=== PATIENT | male | born 1985 | race Caucasian/White ===

== ENCOUNTER 2018-10-20 16:08 | Inpatient (IN) | payer MEDICAID ==
[~2018-10-20] VITALS: Ht 175.3 cm; Wt 114.2 kg
--- NOTE | 2018-10-20 16:15 | NUR ---
BEHAVIORAL HEALTH NURSE AT
--- NOTE | 2018-10-20 16:32 | NUR ---
D/T THE SUICIDE ASSESSMENT THE PATIENT RATES A HIGH SCORE, IT IS RECOMMENDED BY DR. EVERETT THAT THE PATIENT BE PLACED ON A SUICIDE WATCH 1:1. HE ALSO ADMIT HE FEELS HOMICIDAL.
[2018-10-20 17:03] LABS: BASOPHILS 0.3 % (0-2); EOSINOPHILS 4.1 % (0-7); HEMATOCRIT 36.9 % (42.0-54.0); HEMOGLOBIN 12.1 g/dL (13.5-17.5); IMMATURE GRANULOCYTES 0.2 % (0-5); LYMPHOCYTES 44.4 % (15-50); MCH 28.7 pg (26.0-34.0); MCHC 32.8 g/dL (31.0-37.0); MCV 87.6 fL (80.0-100.0); MEAN PLATELET VOLUME 8.9 fL (7.4-10.4); MONOCYTES 9.9 % (2-11); NEUTROPHILS 41.1 % (40-80); PLATELET COUNT 215 10x3/uL (130-400); RBC 4.21 10x6/uL (4.20-6.10); RDW 16.1 % (11.5-14.5); WBC 6.1 10x3/uL (4.8-10.8)
[2018-10-20 17:07] LABS: INR 1.45 (0.85-1.17)
[2018-10-20 17:12] VITALS: BP 123/67
[2018-10-20 17:15] LABS: ALBUMIN 2.9 g/dL (3.4-5.0); ALKALINE PHOSPHATASE 96 U/L (46-116); ALT (SGPT) 53 U/L (10-68); BILIRUBIN - TOTAL 0.45 mg/dL (0.2-1.3); CALC OSMOLALITY 278 mosm/kg (275-300); CARBON DIOXIDE 27.2 mmol/L (21.0-32.0); CHLORIDE - SERUM 103 mmol/L (98-107); CREATININE - SERUM 0.9 mg/dL (0.6-1.3); GLUCOSE 113 mg/dL (74-106); POTASSIUM - SERUM 3.5 mmol/L (3.5-5.1); PROTEIN - SERUM 6.7 g/dL (6.4-8.2); SODIUM 139 mmol/L (136-145); UREA NITROGEN 13 mg/dL (7-18); eGFR NON AFRICAN AMERICAN > 90 mL/min (90-120)
[2018-10-20 18:14] VITALS: BP 117/76
--- NOTE | 2018-10-20 21:04 | NUR ---
PT ARRIVED TO FLOOR VIA OR BED, AT BEDSIDE, PT AAOx4, BEDSIDE COMMODE IN ROOM, PSYCHIATRIC NURSE AT BEDSIDE, DARRION, KEIRA IVF @O
[2018-10-20] MEDS ORDERED: TRAZODONE HCL150 MG PO (21:35)
[2018-10-20] MEDS ORDERED: LEXAPRO10 MG PO (21:37)
[2018-10-20] MEDS ORDERED: SEROQUEL100 MG PO (21:38)
[2018-10-20] MEDS ORDERED: SEROQUEL300 MG (21:39)
[2018-10-20 22:38] VITALS: BP 122/51; BMI 38.5
[2018-10-20 23:00] VITALS: BP 115/77
[2018-10-21] VITALS (24 sets, daily range): BP systolic 94–137; BP diastolic 57–92
--- NOTE | 2018-10-21 01:00 | NUR ---
PT RESTING WITH EYES CLOSED, WAKES WHEN NURSE ENTERS ROOM, DENIES PAIN OR NEEDS AT THIS TIME, MEDS INFUSING PER MAR/ORDERS, VSS, 1:1 SITTER IN ROOM WITH PT
--- NOTE | 2018-10-21 03:00 | NUR ---
REASSESSMENT COMPLETE PER FLOW SHEET, NO ACUTE CHANGES OR DISTRESS NOTED, PT CALM AND COOPERATIVE, X2 VOIDS NOTED, PT REPOSITIONES FREQUENTLY IN BED, VSS, 1:1 SITTER AT BEDSIDE, WILL CONTINUE TO ASSESS
[2018-10-21 03:55] LABS: BASOPHILS 0.3 % (0-2); EOSINOPHILS 4.1 % (0-7); HEMATOCRIT 34.4 % (42.0-54.0); HEMOGLOBIN 11.6 g/dL (13.5-17.5); IMMATURE GRANULOCYTES 0.2 % (0-5); LYMPHOCYTES 34.9 % (15-50); MCH 29.4 pg (26.0-34.0); MCHC 33.7 g/dL (31.0-37.0); MCV 87.1 fL (80.0-100.0); MONOCYTES 11.4 % (2-11); NEUTROPHILS 49.1 % (40-80); PLATELET COUNT 207 10x3/uL (130-400); RBC 3.95 10x6/uL (4.20-6.10); RDW 15.9 % (11.5-14.5); WBC 5.9 10x3/uL (4.8-10.8)
[2018-10-21 04:10] LABS: ALBUMIN 2.6 g/dL (3.4-5.0); ALKALINE PHOSPHATASE 81 U/L (46-116); ALT (SGPT) 52 U/L (10-68); BILIRUBIN - TOTAL 0.48 mg/dL (0.2-1.3); CALC OSMOLALITY 277 mosm/kg (275-300); CARBON DIOXIDE 27.8 mmol/L (21.0-32.0); CHLORIDE - SERUM 106 mmol/L (98-107); CREATININE - SERUM 0.9 mg/dL (0.6-1.3); GLUCOSE 95 mg/dL (74-106); MAGNESIUM - SERUM 1.7 mg/dL (1.8-2.4); POTASSIUM - SERUM 3.6 mmol/L (3.5-5.1); PROTEIN - SERUM 6.2 g/dL (6.4-8.2); SODIUM 140 mmol/L (136-145); UREA NITROGEN 11 mg/dL (7-18); eGFR NON AFRICAN AMERICAN > 90 mL/min (90-120)
--- NOTE | 2018-10-21 07:00 | NUR ---
REC'D REPORT AND RESUMED CARE, MEETA, VSVishnu, DENIES PAIN, ASSESSMENT COMPLTED PER FLOWSHEET, CALL LIGHT IN REACH, SELF REPOSITIONS, PAPER SCRUBS IN USE, SITTER AT BEDSIDE, STATES HE STILL WANTS TO HARM HIMSELF BUT HE DOES MOT HAV A PLAN,
--- NOTE | 2018-10-21 07:30 | NUR ---
CALLED TO ROOM, [place] [facility] [place] NO EVIDENCE OF WIRE IN POOP
--- NOTE | 2018-10-21 08:00 | NUR ---
CALLED TO ROOM, BM TO [facility], STRAINED AND EMPTIED, NO EVIDENCE OF WIRE
--- NOTE | 2018-10-21 08:02 | NUR ---
BM THOROUGHLY INSPECTED WITH NO FOREIGN OBJECTS FOUND, BM SEMISOLID WITH FOOD PARTICLES, TAPIA COLOR, ONCOMING RN AWARE OF THE NEED TO INSPECT BM
--- NOTE | 2018-10-21 09:30 | NUR ---
CALLED TO ROOM, BM TO [facility], STRAINED AND EMPTIED, NO EVIDENCE OF WIRE
--- NOTE | 2018-10-21 10:02 | NUR ---
CALLED TO ROOM, BM TO [facility], STRAINED AND EMPTIED, NO EVIDENCE OF WIRE
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
[2018-10-21 13:57] LABS: CALC OSMOLALITY 278 mosm/kg (275-300); CARBON DIOXIDE 30.3 mmol/L (21.0-32.0); CHLORIDE - SERUM 106 mmol/L (98-107); CREATININE - SERUM 0.8 mg/dL (0.6-1.3); GLUCOSE 133 mg/dL (74-106); POTASSIUM - SERUM 3.6 mmol/L (3.5-5.1); SODIUM 140 mmol/L (136-145); eGFR NON AFRICAN AMERICAN > 90 mL/min (90-120)
[2018-10-21 14:00] LABS: UREA NITROGEN 7 mg/dL (7-18)
--- NOTE | 2018-10-21 14:25 | NUR ---
CALLED TO ROOM C/O PAIN 01/04, DILAUDID 0.5 MG IVP GIVEN PER ORDER
--- NOTE | 2018-10-21 16:00 | NUR ---
I AND O'S COMPLETED, SITTER AT BEDSIDE, NO NEEDS AT THIS TIME
--- NOTE | 2018-10-21 18:00 | NUR ---
EMPTIED 300 CC URINE/ DIARRHEA POOP TO [place], NO EVIDENCE OF WIRE SEEN
--- NOTE | 2018-10-21 19:20 | NUR ---
LYING QUIETLY IN BED, DRINKING A GLASS OF GOLYTELY FROM SECOND JUG. PATIENT SAW DR. RIOS AT BEDSIDE. INFORMED OF PATIENTS SUICIDE STATUS.
--- NOTE | 2018-10-21 19:24 | NUR ---
AT BEDSIDE, UPDATE GIVEN, PT AAOx4, VSS, REPORT RECEIVED, INITIAL ASSESSMENT COMPLETED PER FLOW SHEET, 1:! PSYCH SITTER IN ROOM WITH PT, x1 CUP H2O GIVEN PER REQUEST, NO FURTHER AT THIS TIME, WILL CONTINUE TO MONITOR
--- NOTE | 2018-10-21 20:12 | NUR ---
PATIENT SAYS HE THINKS ABOUT SI. ALL THE TIME. HAS A PLAN THAT HE WOULD JUMP IN FRONT OF A CAR. HE SAYS HE IS TIRED OF BEING ALONE. HE HAS A SISTER AND BROTHER LIVING IN OTHER CITIES IN [place]. SITTER IS MONITORING FOR PER DR. RIOS, WHO IS RECONSIGNMENT CLERK FOR DR. EVERETT.
--- NOTE | 2018-10-21 21:00 | NUR ---
PT REQUESTING PAIN MEDS R/T PAIN IN LOWER ABDOMEN IN BOTH QUADRANTS, PT STATES THE PAIN FEELS LIKE CRAMPING ACHING PAIN, PT GETS AGGITATED STATING "I'VE BEEN ASKING FOR SOMETHING FOR PAIN SINCE 7:00PM" MED GIVEN PER MAR/ORDERS, VSS, WILL CONTINUE TO ASSESS
--- NOTE | 2018-10-21 23:00 | NUR ---
REASSESSMENT COMPLETE SEE FLOW SHEET, NO ACUTE CHANGE, VSS, PT SLEEPING IN BED WITH NO S/S OF ACUTE DISTRESS, 1:1 SITTER AT BEDSIDE
[2018-10-22] VITALS (24 sets, daily range): BP systolic 101–144; BP diastolic 63–97; BMI 40.2
--- NOTE | 2018-10-22 03:00 | NUR ---
REASSESSMENT COMPLETE PER FLOW SHEET, NO ACUTE CHANGE NOTED FROM PRIOR ASSESSMENT, PT SLEEPING IN BED, EASILY WAKEN, VSS, 1:1 SITTER AT BEDSIDE, PT DENIES PAIN OR NEEDS AT THIS TIME, WILL CONTINUE TO ASSESS
[2018-10-22 04:40] LABS: BASOPHILS 0.6 % (0-2); EOSINOPHILS 4.8 % (0-7); HEMATOCRIT 34.4 % (42.0-54.0); HEMOGLOBIN 11.8 g/dL (13.5-17.5); IMMATURE GRANULOCYTES 0.2 % (0-5); LYMPHOCYTES 36.5 % (15-50); MCH 29.6 pg (26.0-34.0); MCHC 34.3 g/dL (31.0-37.0); MCV 86.2 fL (80.0-100.0); MEAN PLATELET VOLUME 9.1 fL (7.4-10.4); MONOCYTES 8.6 % (2-11); NEUTROPHILS 49.3 % (40-80); PLATELET COUNT 231 10x3/uL (130-400); RBC 3.99 10x6/uL (4.20-6.10); RDW 15.5 % (11.5-14.5); WBC 5.2 10x3/uL (4.8-10.8)
[2018-10-22 05:04] LABS: ALBUMIN 2.5 g/dL (3.4-5.0); ALKALINE PHOSPHATASE 74 U/L (46-116); ALT (SGPT) 58 U/L (10-68); BILIRUBIN - TOTAL 0.36 mg/dL (0.2-1.3); CALCIUM 8.2 mg/dL (8.5-10.1); CHLORIDE - SERUM 110 mmol/L (98-107); CREATININE - SERUM 0.7 mg/dL (0.6-1.3); MAGNESIUM - SERUM 1.6 mg/dL (1.8-2.4); POTASSIUM - SERUM 3.5 mmol/L (3.5-5.1); SODIUM 144 mmol/L (136-145); eGFR NON AFRICAN AMERICAN > 90 mL/min (90-120)
[2018-10-22 05:16] LABS: CALC OSMOLALITY 282 mosm/kg (275-300); GLUCOSE 83 mg/dL (74-106); UREA NITROGEN 4 mg/dL (7-18)
--- NOTE | 2018-10-22 07:00 | NUR ---
REC'D REPORT AND RESUMED CARE, SLEEPING WITH SITTER AT BEDSIDE, AROUSABLE TO VERBAL STIMULI, VSS, DENIES PAIN AT THIS TIME, DISCUSSED IF HE FELT LIKE STILL HARMING HIMSELF, STATES HE DOES BUT DOES NO HAVE A PLAN AT THIS TIME
--- NOTE | 2018-10-22 09:45 | NUR ---
MORNING MED GIVEN PER MAR FLOWSHEET, TOLERATED WITHOUT DIFFICULTY
--- NOTE | 2018-10-22 11:51 | NUR ---
SPOKE WITH EVELINA IN SCHEDULING, COLONOSCOPY WITH TIVA SCHEDULED
--- NOTE | 2018-10-22 13:50 | NUR ---
CONSENTS SIGNED FOR PENDING COLONOSCOPY WITH POSIBLE FOREIGN BODY REMOVAL
--- NOTE | 2018-10-22 15:00 | NUR ---
SLEEPING WITH NO SIGN OF DISTRESS, VSS, SITTER AT BEDSIDE, NO NEEDS AT THIS TIME, NO ACUTE CHAGE FROM PREVIOUS ASSESSMENT
--- NOTE | 2018-10-22 15:35 | NUR ---
PATIENT ADMITS TO SI THOUGHTS, BUT NO PLAN AT THIS TIME. SITTER 1:1 AT BEDSIDE. ASSESSMENT REPORTED TO DR. RIOS, WHO IS COVERING FOR DR. EVERETT.
--- NOTE | 2018-10-22 15:41 | NUR ---
FELICIANO SCREENER AT BEDSIDE, PATIENT COPPERATIVE
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
--- NOTE | 2018-10-22 18:56 | MORECARE ---
CASE MANAGEMENT DISCHARGE SUMMARY PATIENT: VISHAL NICOLE UNIT: [id number] ADM DATE: 10/20/18 AGE: 32 : 89 SEX: M ROOM/BED: D.2307 AUTHOR: JOSE LUIS SANTANA PHYSICIAN: REFERRING PHYSICIAN: SALO JAMES MD DATE OF SERVICE: 10/22/18 Discharge Plan Patient Name: VISHAL NICOLE [facility] [facility] 1985 Planned Disposition: Anticipated Discharge Date: Discharge Date: Expected LOS: Initial Reviewer: [email or web address] Initial Review Date: 10/20/2018 Generated: 10/22/18 7:56 pm Patient Name: VISHAL NICOLE Page [phone] at 1856 All edits/amendments must be made on the electronic document DICTATION DATE: 10/22/181855 HOT REPAIRMAN: YORDAN 10/22/181855 RPT#: [id number] DC DATE: STATUS: ADM IN [facility] [address] [place] [address] END OF REPORT
--- NOTE | 2018-10-22 19:59 | NUR ---
PT RECEIVED WITH EYES CLOSED AND CHEST RISING. EASILY AROUSED TO VERBAL STIMULI. NO CONCERNS MADE KNOWN. ASSESSMENT COMPLETED, SEE FLOW SHEET. SITTER IN ROOM. WILL CONTINUE TO OBSERVE.
--- NOTE | 2018-10-22 21:35 | NUR ---
NEW IV SITED TO LEFT HAND. NEW LINES AND FLUIDS STARTED. NO COMPLAINTS NOTED AT THIS TIME.
--- NOTE | 2018-10-22 23:21 | NUR ---
PT RECEIVED JELLO PER REQUEST. PRN DILAUDID GIVEN PER REQUEST FOR PAIN OF 7/10 TO ABDOMEN. REASSESSMENT COMPLETED, SEE FLOW SHEET. SITTER REMAINS AT BEDSIDE. PT WITHOUT BEHAVIORS NOTED AT THIS TIME. CALL LIGHT IN REACH. WILL CONTINUE TO OBSERVE.
[2018-10-23] VITALS (12 sets, daily range): BP systolic 95–127; BP diastolic 64–83; Ht 175.3 cm; Wt 114.2 kg
--- NOTE | 2018-10-23 01:27 | NUR ---
PT RESTING WITH EYES CLOSED AND CHEST RISING. VSS. CALL LIGHT IN REACH. WILL CONTINUE TO OBSERVE.
--- NOTE | 2018-10-23 03:45 | NUR ---
REASSESSMENT COMPLETED, SEE FLOW SHEET. PT SLEEPING MOST OF NIGHT AND EASILY AWOKEN. PT USED BEDSIDE COMMODE. NO FOREIGN OBJECTS NOTED WHEN EMPTYING. CALL LIGHT IN REACH. WILL CONTINUE TO OBSERVE. SITTER AT BEDSIDE.
[2018-10-23 04:00] LABS: BASOPHILS 0.2 % (0-2); EOSINOPHILS 5.4 % (0-7); HEMATOCRIT 34.9 % (42.0-54.0); HEMOGLOBIN 11.8 g/dL (13.5-17.5); IMMATURE GRANULOCYTES 0.2 % (0-5); LYMPHOCYTES 37.2 % (15-50); MCH 28.9 pg (26.0-34.0); MCHC 33.8 g/dL (31.0-37.0); MCV 85.3 fL (80.0-100.0); MEAN PLATELET VOLUME 8.8 fL (7.4-10.4); MONOCYTES 9.3 % (2-11); NEUTROPHILS 47.7 % (40-80); PLATELET COUNT 225 10x3/uL (130-400); RBC 4.09 10x6/uL (4.20-6.10); RDW 15.7 % (11.5-14.5); WBC 5.6 10x3/uL (4.8-10.8)
[2018-10-23 04:06] LABS: INR 1.12 (0.85-1.17); PROTIME 13.9 SECONDS (11.6-15.0)
[2018-10-23 04:18] LABS: ALBUMIN 2.6 g/dL (3.4-5.0); ALKALINE PHOSPHATASE 79 U/L (46-116); ALT (SGPT) 62 U/L (10-68); BILIRUBIN - TOTAL 0.32 mg/dL (0.2-1.3); CALC OSMOLALITY 283 mosm/kg (275-300); CALCIUM 8.6 mg/dL (8.5-10.1); CARBON DIOXIDE 24.5 mmol/L (21.0-32.0); CHLORIDE - SERUM 110 mmol/L (98-107); CREATININE - SERUM 0.8 mg/dL (0.6-1.3); GLUCOSE 92 mg/dL (74-106); MAGNESIUM - SERUM 1.5 mg/dL (1.8-2.4); POTASSIUM - SERUM 3.5 mmol/L (3.5-5.1); PROTEIN - SERUM 6.2 g/dL (6.4-8.2); SODIUM 144 mmol/L (136-145); UREA NITROGEN 4 mg/dL (7-18); eGFR NON AFRICAN AMERICAN > 90 mL/min (90-120)
--- NOTE | 2018-10-23 06:24 | NUR ---
MAG 1.5 WITH ELECTROLYTE PROTOCOL FOLLOWED. NO CONCERNS NOTED. CALL LIGHT IN REACH.
--- NOTE | 2018-10-23 07:00 | NUR ---
REPORT RECIEVED, SHIFT ASSESSMENT COMPLETE, PT IS ALERT AND ORIENTED, ALL PPP, VSS, CALL LIGHT IN REACH
--- NOTE | 2018-10-23 07:15 | NUR ---
DR. ELIZABETH AT BEDSIDE, COLONOSCOPY PERFORMED
--- NOTE | 2018-10-23 11:00 | NUR ---
REASSESSMENT COMPLETE, NO CHANGES NOTED, VSS, CALL LIGHT IN REACH
--- NOTE | 2018-10-23 12:42 | NUR ---
COMPLETE BATH AND LINEN CHANGE, PT TOLERATED WELL
--- NOTE | 2018-10-23 13:00 | NUR ---
UPDATE GIVEN TO DR. ONEAL, NO NEW ORDERS RECIEVED
--- NOTE | 2018-10-23 13:45 | NUR ---
DR. ONEAL AT BEDSIDE, NEW ORDERS RECIEVED
--- NOTE | 2018-10-23 14:15 | MORECARE ---
CASE MANAGEMENT DISCHARGE SUMMARY PATIENT: VISHAL NICOLE UNIT: [id number] ADM DATE: 10/20/18 AGE: 32 : 89 SEX: M ROOM/BED: D.2307 AUTHOR: JOSE LUIS SANTANA PHYSICIAN: REFERRING PHYSICIAN: SALO JAMES MD DATE OF SERVICE: 10/23/18 Discharge Plan Patient Name: VISHAL NICOLE [facility] [facility] 1985 Planned Disposition: Anticipated Discharge Date: Discharge Date: Expected LOS: Initial Reviewer: [email or web address] Initial Review Date: 10/20/2018 Generated: 10/23/18 3:14 pm Last DP export: 10/22/18 5:56 p Patient Name: VISHAL NICOLE Page [phone] at 1415 All edits/amendments must be made on the electronic document DICTATION DATE: 10/23/18 141 MANAGER CARDIAC: YORDAN 10/23/18 1414 RPT#: [id number] DC DATE: STATUS: ADM IN [facility] [address] [place] [address] END OF REPORT
--- NOTE | 2018-10-23 15:15 | NUR ---
LEFT HAND PIV INFILTRATED, DC'D AT THIS TIME, RIGHT A/C PIV NOW IN PLACE
--- NOTE | 2018-10-23 17:00 | NUR ---
PT RESTING AT THIS TIME, VSS, CALL LIGHT IN REACH, SITTER AT BEDSIDE
--- NOTE | 2018-10-23 18:01 | NUR ---
PT. ADMITS TO SI THOUGHTS, BUT STATES" NO PLAN AT THIS TIME." SITTER 1:1 PRESENT AT BEDSIDE. ASSESSMENT AND FINDING REPORTED TO DR. RIOS, WHO IS COVERING FOR DR. EVERETT.
--- NOTE | 2018-10-23 19:30 | NUR ---
SHIFT ASSESSMENT COMPLETE, PER NURSING FLOWSHEET. PATIENT INDEPENDENTLY REPOSITIONS SELF. SITTER REMAINS AT THIS PATIENT'S BEDSIDE, PER HOSPITAL POLICY.
--- NOTE | 2018-10-23 21:00 | NUR ---
PATIENT INDEPENDENTLY REPOSITIONS SELF. SITTER REMAINS AT THIS PATIENT'S BEDSIDE, PER HOSPITAL POLICY. WILL CONTINUE TO MONITOR
--- NOTE | 2018-10-23 23:00 | NUR ---
RE-ASSESSMENT COMPLETE, PER NURSING FLOWSHEET. PATIENT CONTINUES TO REPOSITION SELF, SITTER REMAINS AT THIS PATIENT'S BEDSIDE, PER HOSPITAL POLICY. CONTINUE POC
--- NOTE | 2018-10-24 01:00 | NUR ---
PATIENT PREVIOUSLY REPOSITIONED SELF, IS CURRENTLY SLEEPING, VSS, NO DISTRESS NOTED, PATIENT REMAINS AT THIS PATIENT'S BEDSIDE, PER HOSPITAL POLICY, C/L IN REACH
[2018-10-24 03:00] VITALS: BP 118/78
--- NOTE | 2018-10-24 03:00 | NUR ---
RE-ASSESSMENT COMPLETE, PER NURSING FLOWSHEET. PATIENT INDEPENDENTLY REPOSITIONS SELF. PATIENT REQUESTING TO HAVE RIGHT AC IV RESITED, THAT RIGHT AC IV IS "HURTING". SITTER CONTINUES AT THIS PATIENT'S BEDSIDE, PER HOSPITAL POLICY
--- NOTE | 2018-10-24 03:45 | NUR ---
RIGHT WRIST IV INITIATED AFTER MULTIPLE ATTEMPTS AND USE OF VEIN FINDER. RIGHT AC IV LEFT, SECONDARY TO STILL BEING PATENT, ALTHOUGH IV FLUIDS CHANGED TO RIGHT WRIST FOR PATIENT COMFORT
[2018-10-24 04:12] LABS: BASOPHILS 0.3 % (0-2); EOSINOPHILS 4.9 % (0-7); HEMATOCRIT 37.2 % (42.0-54.0); HEMOGLOBIN 12.8 g/dL (13.5-17.5); IMMATURE GRANULOCYTES 0.2 % (0-5); LYMPHOCYTES 34.6 % (15-50); MCHC 34.4 g/dL (31.0-37.0); MCV 84.4 fL (80.0-100.0); MEAN PLATELET VOLUME 8.5 fL (7.4-10.4); MONOCYTES 9.2 % (2-11); NEUTROPHILS 50.8 % (40-80); PLATELET COUNT 226 10x3/uL (130-400); RBC 4.41 10x6/uL (4.20-6.10); RDW 14.9 % (11.5-14.5)
[2018-10-24 04:34] LABS: ALBUMIN 2.8 g/dL (3.4-5.0); ALKALINE PHOSPHATASE 83 U/L (46-116); ALT (SGPT) 72 U/L (10-68); CALCIUM 8.7 mg/dL (8.5-10.1); CHLORIDE - SERUM 106 mmol/L (98-107); CREATININE - SERUM 0.8 mg/dL (0.6-1.3); GLUCOSE 81 mg/dL (74-106); MAGNESIUM - SERUM 1.8 mg/dL (1.8-2.4); POTASSIUM - SERUM 3.7 mmol/L (3.5-5.1); PROTEIN - SERUM 6.8 g/dL (6.4-8.2); SODIUM 140 mmol/L (136-145); eGFR NON AFRICAN AMERICAN > 90 mL/min (90-120)
[2018-10-24 04:42] LABS: CALC OSMOLALITY 275 mosm/kg (275-300); UREA NITROGEN 7 mg/dL (7-18)
--- NOTE | 2018-10-24 05:00 | NUR ---
PATIENT CONTINUES TO REPOSITION SELF. SITTER CONTINUES AT THIS PATIENT'S BEDSIDE, PER HOSPITAL POLICY. CONTINUE POC
[2018-10-24 07:00] VITALS: BP 126/80
--- NOTE | 2018-10-24 07:10 | NUR ---
REPORT RECIEVED, SHIFT ASSESSMENT COMPLETE, PT IS ALERT AND ORIENTED, ON RA WITH 97% O2 SAT. ALL PPP, VSS, CALL LIGHT IN REACH
--- NOTE | 2018-10-24 09:00 | NUR ---
NO NEEDS NOTED AT THIS TIME, WILL CON'T TO MONITOR
--- NOTE | 2018-10-24 09:33 | NUR ---
Nutrition follow-up: Pt NPO for possible surgery soon Labs reviewed Wt: 272# RDN following.
[2018-10-24 11:00] VITALS: BP 114/80
--- NOTE | 2018-10-24 11:00 | NUR ---
REASSESSMENT COMPLETE, NO CHANGES NOTED, VSS, CALL LIGHT IN REACH
--- NOTE | 2018-10-24 13:00 | NUR ---
PT RESTING AT THIS TIME, SITTER AT BEDSIDE
[2018-10-24 15:00] VITALS: BP 130/62
--- NOTE | 2018-10-24 15:00 | NUR ---
REASSESSMENT COMPLETE, NO CHANGES NOTED, WILL CON'T TO MONITOR
--- NOTE | 2018-10-24 17:00 | NUR ---
PT AWAKE AT THIS TIME, SITTER AT BEDSIDE,
[2018-10-24 19:00] VITALS: BP 137/81
--- NOTE | 2018-10-24 19:00 | NUR ---
REPORT RECEIVED, CARE ASSUMED. PT IS RESTING IN BED WATCHING TV AT THIS TIME. SITTER PRESENT AT BEDSIDE. INITIAL ASSESSMENT COMPLETED, SEE FLOWSHEET FOR DETAILS. NO SIGNS OF ACUTE DISTRESS NOTED AT THIS TIME. PT DOES COMPLAIN OF PAIN. PRN MEDICATIONS GIVEN. WILL CONTINUE TO MONITOR.
--- NOTE | 2018-10-24 21:00 | NUR ---
PT IS RESTING IN BED WITH EYES CLOSED AT THIS TIME. NO SIGNS OF ACUTE DISTRESS. WILL CONTINUE TO MONITOR.
[2018-10-24 23:00] VITALS: BP 135/80
--- NOTE | 2018-10-24 23:00 | NUR ---
REASSESSMENT COMPLETED, SEE FLOWSHEET FOR DETAILS. PT IS LAYING IN BED WITH EYES CLOSED AT THIS TIME. SITTER AT BEDSIDE. NO NEEDS VOICED. NO SIGNS OF ACUTE DISTRESS. WILL CONTINUE TO MONITOR.
[2018-10-25] VITALS (15 sets, daily range): BP systolic 121–151; BP diastolic 80–101
--- NOTE | 2018-10-25 01:00 | NUR ---
PT IS RESTING IN BED WITH EYES CLOSED. SITTER IS AT BEDSIDE. NO ACUTE CHANGES NOTED. NO SIGNS OF ACUTE DISTRESS. WILL CONTINUE TO MONITOR.
--- NOTE | 2018-10-25 03:00 | NUR ---
REASSESSMENT COMPLETED, SEE FLOWSHEET FOR DETAILS. PT IS LAYING IN BED WITH EYES CLOSED AT THIS TIME. NO ACUTE CHANGES NOTED AT THIS TIME. NO SIGNS OF ACUTE DISTRESS. WILL CONTINUE TO MONITOR.
[2018-10-25 03:15] LABS: BASOPHILS 0.6 % (0-2); EOSINOPHILS 6.3 % (0-7); HEMATOCRIT 37.7 % (42.0-54.0); HEMOGLOBIN 13.1 g/dL (13.5-17.5); IMMATURE GRANULOCYTES 0.2 % (0-5); LYMPHOCYTES 43.8 % (15-50); MCH 29.2 pg (26.0-34.0); MCHC 34.7 g/dL (31.0-37.0); MCV 84.2 fL (80.0-100.0); MEAN PLATELET VOLUME 8.4 fL (7.4-10.4); MONOCYTES 10.6 % (2-11); NEUTROPHILS 38.5 % (40-80); PLATELET COUNT 211 10x3/uL (130-400); RBC 4.48 10x6/uL (4.20-6.10); RDW 14.9 % (11.5-14.5); WBC 5.2 10x3/uL (4.8-10.8)
--- NOTE | 2018-10-25 03:26 | NUR ---
PATIENT ADMITS TO SI ATTEMPT, BUT NO FURTHER PLANS AT THIS TIME. SITTER 1:1 AT BEDSIDE. [place] SSRI-FREQ SCREENER RESULTS REPORTED TO DR. RIOS WHOM IS COVERING FOR DR. EVERETT.
[2018-10-25 03:30] LABS: ALBUMIN 2.8 g/dL (3.4-5.0); ALKALINE PHOSPHATASE 84 U/L (46-116); ALT (SGPT) 69 U/L (10-68); BILIRUBIN - TOTAL 0.44 mg/dL (0.2-1.3); CALC OSMOLALITY 273 mosm/kg (275-300); CALCIUM 8.6 mg/dL (8.5-10.1); CARBON DIOXIDE 23.9 mmol/L (21.0-32.0); CHLORIDE - SERUM 107 mmol/L (98-107); CREATININE - SERUM 0.8 mg/dL (0.6-1.3); GLUCOSE 95 mg/dL (74-106); MAGNESIUM - SERUM 1.7 mg/dL (1.8-2.4); POTASSIUM - SERUM 3.8 mmol/L (3.5-5.1); PROTEIN - SERUM 6.7 g/dL (6.4-8.2); SODIUM 138 mmol/L (136-145); UREA NITROGEN 8 mg/dL (7-18); eGFR NON AFRICAN AMERICAN > 90 mL/min (90-120)
--- NOTE | 2018-10-25 05:00 | NUR ---
PT IS RESTING IN BED WITH EYES CLOSED. WOKE PT UP TO TAKE A CHG BATH. COMPLETE LINEN CHANGE DONE. NO SIGNS OF ACUTE DISTRESS. WILL CONTINUE TO MONITOR.
--- NOTE | 2018-10-25 07:15 | NUR ---
REPORT RECIEVED, SHIFT ASSESSMENT COMPLETE, PT IS ALERT AND ORIENTED, ON RA WITH 97% O2 SAT, ALL PPP, VSS, CALL LIGHT IN REACH
--- NOTE | 2018-10-25 07:44 | NUR ---
PATIENT ADMITS TO HAVING SUICIDAL THOUGHTS, BUT DENIES ANY PLAN TO DO SO. SITTER 1 ON 1 AT BEDSIDE. ASSESSMENT REPORTED TO DR. RIOS WHO IS COVERING FOR DR. EVERETT AT THIS TIME. PATIENT IS RESTING QUIETLY IN BED AT THIS TIME, AWAITNG SURGERY.
--- NOTE | 2018-10-25 09:00 | NUR ---
PT RESTING AT THIS TIME, SITTER AT BEDSIDE, WILL CON'T TO MONITOR
--- NOTE | 2018-10-25 11:03 | NUR ---
PATIENT LEFT ROOM FOR ABD SURGERY.
--- NOTE | 2018-10-25 11:04 | NUR ---
PT TO OR AT THIS TIME VIA BED
--- NOTE | 2018-10-25 12:44 | MORECARE ---
CASE MANAGEMENT DISCHARGE SUMMARY PATIENT: VISHAL NICOLE UNIT: [id number] ADM DATE: 10/20/18 AGE: 32 : [birth year] SEX: M ROOM/BED: D.2307 AUTHOR: JOSE LUIS SANTANA PHYSICIAN: REFERRING PHYSICIAN: SALO JAMES MD DATE OF SERVICE: 10/25/18 Discharge Plan Patient Name: VISHAL NICOLE [facility] [facility] 1985 Planned Disposition: Anticipated Discharge Date: Discharge Date: Expected LOS: Initial Reviewer: [email or web address] Initial Review Date: 10/20/2018 Generated: 10/25/18 1:44 pm Last DP export: 10/23/18 1:15 p Patient Name: VISHAL NICOLE Page [id number] at 1244 All edits/amendments must be made on the electronic document DICTATION DATE: 10/25/18 1244 PALEONTOLOGY TEACHER: YORDAN 10/25/18 1244 RPT#: [id number] DC DATE: STATUS: ADM IN [facility] [address] [place] [address] END OF REPORT
--- NOTE | 2018-10-25 12:54 | MORECARE ---
CASE MANAGEMENT DISCHARGE SUMMARY PATIENT: VISHAL NICOLE UNIT: [id number] ADM DATE: 10/20/18 AGE: 32 : 89 SEX: M ROOM/BED: D.2307 AUTHOR: JOSE LUIS SANTANA PHYSICIAN: REFERRING PHYSICIAN: SALO JAMES MD DATE OF SERVICE: 10/25/18 Discharge Plan Patient Name: VISHAL NICOLE [facility] [facility] 1985 Planned Disposition: Anticipated Discharge Date: Discharge Date: Expected LOS: Initial Reviewer: [email or web address] Initial Review Date: 10/20/2018 Generated: 10/25/18 1:53 pm Comments DCP- Discharge Planning Updated by [email or web address]: Gaby Calixto on 10/25/18 11:[address] CM received notice that patient will need placement for inpatient psychiatric treatment once medically stable. Patient is having surgery today to remove foreign body. CM will continue to follow and assist as needed with discharge planning/ needs. Last DP export: 10/25/18 11:44 a Patient Name: VISHAL NICOLE Page [phone] at 1254 All edits/amendments must be made on the electronic document DICTATION DATE: 10/25/18 125 BODY TEAM MEMBER: YORDAN 10/25/18 1253 RPT#: [id number] DC DATE: STATUS: ADM IN [facility] [address] [place] [address] END OF REPORT
--- NOTE | 2018-10-25 14:02 | OP ---
PATIENT NAME: VISHAL NICOLE MEDICAL RECORD: [id number] :[birth year] LOCATION:[facility] D.2307 ADMISSION DATE:10/20/18 SURGEON: PAM ONEAL MD DATE OF OPERATION: 10/25/2018 SURGEON: Pam Oneal MD PREOPERATIVE DIAGNOSES: Bowel obstruction with foreign body, attempted suicide attempt from swallowing multiple foreign bodies. POSTOPERATIVE DIAGNOSES: Bowel obstruction with foreign body, attempted suicide attempt from swallowing multiple foreign bodies. PROCEDURE PERFORMED: Exploratory laparotomy, extensive adhesiolysis and small bowel resection with removal of foreign body, scar revision. ANESTHESIA: General. COMPLICATIONS: None. SPECIMENS: Small bowel resection with foreign body. WOUND CLASS: Clean contaminated. ESTIMATED BLOOD LOSS: 300 cc. OPERATIVE COURSE: After consent was obtained, the patient was taken to the operating room and placed in the supine position on the operating table. Next, general anesthesia was given via endotracheal intubation. Thereafter, a timeout was performed to confirm the correct patient and procedure. The abdomen was prepped and draped in typical sterile fashion. Ioban dressing was placed. The patient has 2 large midline ventral scars. The patient has a history of multiple previous suicide attempts. He has swallowed a ballpoint pen in the past that required an exploratory laparotomy and small bowel resection. He postoperatively dehisced his wound by pulling the jeff out and pulling the skin edges apart. He has a large ventral hernia in the inferior incision below the umbilicus. Above the umbilicus, he has a scar that was greater than 3 inches in width at this time a scar revision was performed. The scar was excised in its entirety using the 10-blade scalpel. Dissection then continued to the level of the fascia. The fascia was incised using Metzenbaum scissors. Gentle blunt dissection and sharp scissor dissection was performed to free the small bowel from the peritoneum. The remaining previous abdominal incision was opened then using electrocautery. Incision was from the umbilicus to the xiphoid process. As noted on the CT scan, there were multiple ventral hernias with extensive adhesions. At this point, extensive adhesiolysis was performed with the combination of electrocautery and Metzenbaum scissor dissection until the small bowel was freed from both the right and left anterior abdominal wall. The small bowel was slowly extracorporealized with adhesiolysis until the foreign body was identified in the small bowel. There was continued adhesiolysis proximal and distal to confirm the anatomy of the bowel, both proximally and distally. Once this was complete, enterotomies were made on both sides of the foreign body. A side by side enteroenterostomy was created using the 75-mm linear cutting stapler. The common enterotomy was then closed with a second firing of the 75-mm linear VALENTÍN stapler both with green loads. The mesentery was taken with a third firing of the linear VALENTÍN stapler. The suture OPERATIVE REPORT [id number] NICOLEVISHAL line was then imbricated using 3-0 Vicryl suture. The mesenteric defect was closed using 3-0 Vicryl suture. The small bowel specimen was passed off the field and sent for permanent pathology with the foreign body within the specimen. Again, further adhesiolysis was performed from the anterior abdominal wall. The small bowel was meticulously inspected throughout all areas of dissection to evaluate for serosal defects. There were no enterotomies identified. No serosal defects identified. The abdomen was then irrigated with 2-3 liters of warm normal saline. An NG tube was placed and confirmed within the stomach by manual palpation. At this time, subcutaneous flaps were created. The fascia was closed with #1 looped PDS. Subcutaneous tissue was copiously irrigated. The skin was then closed with jeff. At the end of the case, all needle and instrument counts were correct. No complications occurred. The patient was extubated and transferred to the PACU in stable condition. TRANSINT:[id number] Voice Confirmation ID: [id number] DOCUMENT ID: [id number] PAM ONEAL MD at 1402 CC: [id number] DICTATION DATE: 10/25/18 1314 MOTOR EQUIPMENT CAPTAIN: 10/25/18 1358 ADM IN [facility] [address] [place] [address]
--- NOTE | 2018-10-25 14:09 | NUR ---
PT BACK FROM OR. VSS. HR 84 BP 139/92 O2 VIA 4L NC 96% WILL CONTINUE TO MONITOR
--- NOTE | 2018-10-25 14:30 | NUR ---
GWEN AT BEDSIDE. MIDLINE PLACED IN RIGHT UPPER ARM, PT TOLERATED WELL
--- NOTE | 2018-10-25 15:02 | NUR ---
REASSESSMENT COMPLETE, NO CHANGES NOTED, PT RESTING AT THIS TIME, DRSG TO MIDLINE INCSION IS CDI, ALL PPP, VSS, CALL LIGHT IN REACH
--- NOTE | 2018-10-25 17:27 | NUR ---
PT C/O OF PAIN REPOSITIONED FOR COMFORT. RESTING COMFORTAL Y
--- NOTE | 2018-10-25 19:22 | NUR ---
PATIENT LYING IN BED, OPENS EYES OCCASSIONALLY, REPORTS HAVING THOUGHTS OF KILLING HIMSELF THIS MORNING, BUT HAS NO PLAN ON HOW TO DO IT. REPORTS THAT HE WANTS TO CALL HIS SISTER TO LET HER KNOW THAT HE IS "OKAY". PATIENT IS ALERT AND ORIENTED TO PERSON, PLACE AND TIME.
--- NOTE | 2018-10-25 19:36 | NUR ---
PATIENT COMMENTED TO THIS NURSE, "YOU CAN GO TO SLEEP TONIGHT IF YOU WANT TO"., THIS NURSE REPONDED, "NO, I CAN NOT"
[2018-10-26] VITALS (22 sets, daily range): BP systolic 101–163; BP diastolic 56–97
--- NOTE | 2018-10-26 02:59 | NUR ---
REASSESSMENT COMPLETED SEE FLOWSHEET
--- NOTE | 2018-10-26 07:15 | NUR ---
AWAKE AND ALERT SKIN WARM AND DRY. NG TURNED TO LOW INTERMITTENT SUCTION NO DRAINAGE NOTED. OXYGEN AT 2 LITERS NC. REQUESTING PAIN MEDS. ABD FLAT DRESSING WITH DRAINAGE MARKED. HENSLEY CATH PATENT DRAINING CLEAR YELLOW URINE. SCD TURNED ON TO LOWER LEGS. ASKING ALOT OF QUESTION. GETTING UP, TAKING PO MEDS, WANTING AN ABD BINDER. INSTRUCTED WE ASK PHYSICAN WHEN HE MAKES ROUNDS. MID LINE RIGHT UPPER ARM INTACT DRESSING DRY AND INTACT. BLUE CAP NOT ON END OF MIDLINE. CLEAN END OF MIDLINE WITH ALCOHOL AND BLUE CAP APPLIED. IV IN RIGHT WRIST AND FOREARM DC'D. NS CONNECTED TO MIDLINE AT 75 ML HOUR. PATIENT TOLERATED WELL. AIDE AT DOOR OBSERVING PATIENT.
--- NOTE | 2018-10-26 09:00 | NUR ---
REPOSTIONED SELF ON RIGHT SIDE WITH ENCOURAGEMENT. PILLOW AT BACK AND BETWEEN LEGS.
--- NOTE | 2018-10-26 10:00 | NUR ---
WANTING MORE PAIN MEDS INSTRUCTED WOULD BE AFTER 11 AM BEFORE HE COULD HAVE MORE
--- NOTE | 2018-10-26 12:00 | NUR ---
DR. TRAVIS HERE. ORDERS NOTED.
--- NOTE | 2018-10-26 13:01 | NUR ---
COMPLETE HIBCLENS BATH GIVEN UP IN CHAIR, WITH MINIMAL ASSISTANCES HENSLEY CATH DC'D. TOLERATED WELL. ABD BINDER APPLIED. AMBULATED IN ROOM PER PATIENT REQUEST. STATES HIS LEGS DID GET SHAKEY. INSTRUCTED TO REST IN CHAIR. HEART RATE UP TO 148 WHEN AMBULATING, RETURNED TO 110 AFTER RESTING IN CHAIR SHORT TIME. VERY TALKATIVE. ABD DRESSING INTACT NO CHANGE NO DRAINAGE. MEDLINE INTACT. TORADOL STARTED. PATIENT STATES HE HAS TAKEN IT BEFORE AND IT WAS EFFECTIVE. NG TUBE CLAMPED WHILE UP IN CHAIR PATIENT PASSING GAS.
--- NOTE | 2018-10-26 13:45 | NUR ---
RETURN TO BED WITH ASSISTANCES. SCD APPLIED TO LOWER LEGS
--- NOTE | 2018-10-26 14:14 | NUR ---
VANCOMYCIN THROUGH LEVEL RECEIVED. VANCOMYCIN GIVEN
--- NOTE | 2018-10-26 15:17 | NUR ---
IV PAIN MEDS GIVEN FOR CONTINUE ABD PAIN. NO CHANGES IN ASSESSMENT. ABD BINDER IN PLACE. DEEP BREATHING AND COUGHING ON REQUEST. GOOD COUGH EFFORT. WATCHIMG TV NO DISTRESS. SPLINTING WITH PILLOW WHEN COUGHING.
--- NOTE | 2018-10-26 15:20 | NUR ---
VOIDED 100 CC KYLEE URINE IN URINAL.
--- NOTE | 2018-10-26 17:30 | NUR ---
WATCHING TV. NO DISTRESS. NG TO LOW INTERMITTENT SUCTION WITH GARCIA BROWN DRAINAGE SMALL AMOUNT. ABD DRESSING INTACT. COUGHING AND DEEP BREATHING ON REQUEST. SPLITTING WITH PILLOW. SCD ON LOWER LEGS. MONITOR SR. CONTINUES ON ROOM AIR. STILL ASKING CONTINOUS QUESTIONS WHEN NURSE IN ROOM. WHEN HE'S EATING, WHEN IS HE GOING TO GET THE TUBE OUT OF HIS NOSE. QUESTIONS ANSWERED. TURNING SELF FROM SIDE TO SIDE
--- NOTE | 2018-10-26 19:10 | NUR ---
PATIENT RESTING COMFORTABLY IN BED - REQUESTING OOB TO CHAIR, UP WITH ASSISTANCE BLEEDING NOTED FROM SURGICAL SITE, ASSISTED PATIENT BACK INTO BED. DRESSING CLEAN, NOTED BLOOD POOLING AT BOTTOM RIGHT CORNER AND LEAKED UNDER DRESSING, REINFORCED DRESSING WITH ABD PAD AND MEDIPORE. PATIENT REPORTS PAIN 8/10 ON NUMERIC PAIN SCALE. PATIENT EDUCATION GIVEN REGARDING ACTIVITY LIMITATIONS AND SPLINTING SHIFT ASSESSMENT COMPLETED, TACHYCARDIA NOTED AND SKIN HOT TO TOUCH, TEMP 98.2 ORAL. WILL CONTINUE TO MONITOR
--- NOTE | 2018-10-26 20:49 | NUR ---
PATIENT RECEIVED NIGHT TIME MEDS VIA NG TUBE, LOW INTERMITTENT SUCTION OFF AT THIS TIME. VSS DENIES NEEDS CPOC
--- NOTE | 2018-10-26 23:20 | NUR ---
REASSESSMENT COMPLETED SEE FLOWSHEET
[2018-10-27] VITALS (23 sets, daily range): BP systolic 89–122; BP diastolic 59–83
--- NOTE | 2018-10-27 01:09 | NUR ---
PT RESTING COMFORTABLY EVEN RISE AND FALL OF CHEST, NO APPARENT DISTRESS - VSS CPOC
[2018-10-27 04:15] LABS: BASOPHILS 0.1 % (0-2); EOSINOPHILS 0.1 % (0-7); HEMOGLOBIN 12.3 g/dL (13.5-17.5); IMMATURE GRANULOCYTES 0.3 % (0-5); LYMPHOCYTES 17.1 % (15-50); MCH 28.9 pg (26.0-34.0); MCHC 34.2 g/dL (31.0-37.0); MCV 84.7 fL (80.0-100.0); NEUTROPHILS 73.4 % (40-80); PLATELET COUNT 228 10x3/uL (130-400); RBC 4.25 10x6/uL (4.20-6.10); RDW 15.7 % (11.5-14.5); WBC 16.1 10x3/uL (4.8-10.8)
[2018-10-27 04:22] LABS: CALC OSMOLALITY 280 mosm/kg (275-300); CALCIUM 8.6 mg/dL (8.5-10.1); CARBON DIOXIDE 23.7 mmol/L (21.0-32.0); CHLORIDE - SERUM 108 mmol/L (98-107); CREATININE - SERUM 0.9 mg/dL (0.6-1.3); GLUCOSE 113 mg/dL (74-106); POTASSIUM - SERUM 4.1 mmol/L (3.5-5.1); SODIUM 140 mmol/L (136-145); UREA NITROGEN 16 mg/dL (7-18); eGFR NON AFRICAN AMERICAN > 90 mL/min (90-120)
--- NOTE | 2018-10-27 07:30 | NUR ---
AWAKES EASILY TO VERBAL STIMULI REMOVED TAPE SECURING NG TUBE. NOSE CLEANED WITH ALCOHOL AND NG SECURE WITH NG STATLOCK STABLIZATION DEVICE. TOLERATED WELL. RIGHT UPPER ARM MIDLINE DRESSING SECURE. DENIES NEEDING ANY PAIN MEDS AT THIS TIME. REINFORCED ABD DRESSING DRY AND INTACT. ABD BINDER IN PLACE. RESTING WELL NO DISTRESS
--- NOTE | 2018-10-27 09:03 | NUR ---
PO MEDS TAKEN WITHOUT DIFFICULTY. NG TUBE CLAMPED
--- NOTE | 2018-10-27 09:22 | NUR ---
VOIDED LARGE AMOUNT OF DARK KYLEE URINE. UP ON BSC. GOOD GAIT. TOLERATED WELL
--- NOTE | 2018-10-27 09:51 | NUR ---
PATIENT UP ON BSC PASSING GAS. NO BOWEL MOVEMENT UP IN CHAir. bath give, shaved and brushed teeth with nurse at his side. patient tolerated well instructed to sit up for at least an hour. verbalized understanding.
--- NOTE | 2018-10-27 11:00 | NUR ---
DR. DEE HERE. NG TUBE REMOVED. PATIENT TOLERATED WELL. ICE WATER PROVIDED. NO COMPLAINTS OF NAUSEA.
--- NOTE | 2018-10-27 11:40 | NUR ---
CLEAR LIQUID LUNCH SERVED ATE FEW BITES. THEN RETURNED TO BED. AMBULATES WITHOUT DIFFICULTY. NO DISTRESS
--- NOTE | 2018-10-27 13:11 | NUR ---
ABD DRESSING CHANGED. ДМИТРИЙ INTACT. SOME DARK RED DRAINAGE NOTED. CLEAN WITH BETADINE. ABD APPLIED SECURE WITH TAPE.PATIENT TOLERATED FAIR
--- NOTE | 2018-10-27 14:22 | NUR ---
RESTING WITH EYES CLOSED. NO DISTRESS. RESP DEEP AND REGULAR.
--- NOTE | 2018-10-27 16:30 | NUR ---
CLEAR LIQUID SERVED ATE ABOUT HALF. NO NAUSEA NO DISTRESS. FEED HIMSELF
--- NOTE | 2018-10-27 17:30 | NUR ---
WATCHING TV NO DISTRESS. VOIDED CLEAR DARK KYLEE URINE.
--- NOTE | 2018-10-27 18:34 | NUR ---
PATIENT RETURNED TO BED GAIT IMPROVED, BUT STILL UNSTEADY
--- NOTE | 2018-10-27 19:33 | NUR ---
SHIFT ASSESSMENT COMPLETE. PATIENT RESTING QUIETLY IN SUPINE POSITION. PATIENT IS REQUESTING PAIN MEDS AT THIS TIME; ENCORAGED PATIENT TO REPOSITION SINCE HE HAD HIS PAIN MED WITHIN AN HOUR AGO. PATIENT VERBALIZED UNDERSTANDING OF NEEDING TO REPOSITION.
--- NOTE | 2018-10-27 19:45 | NUR ---
PATIENT UP TO BSC TO HAVE BM. NO RESULTS WITH BM AT THIS TIME. PATIENT STATED HE WAS HAVING TO STRAIN AND CAUSING HIM PAIN.
--- NOTE | 2018-10-27 21:00 | NUR ---
PT IS RESTING IN BED WATCHING TV AT THIS TIME. SITTER AT BEDSIDE. PT DENIES NEEDS AT THIS TIME. NO SIGNS OF ACUTE DISTRESS. WILL CONTINUE TO MONITOR.
--- NOTE | 2018-10-27 23:00 | NUR ---
REASSESSMENT COMPLETED, SEE FLOWSHEET FOR DETAILS. PT IS LAYING IN BED WITH EYES CLOSED AT THIS TIME. SITTER AT BEDSIDE. NO SIGNS OF ACUTE DISTRES. WILL CONTINUE TO MONITOR.
[2018-10-28] VITALS (15 sets, daily range): BP systolic 102–138; BP diastolic 48–89
--- NOTE | 2018-10-28 01:00 | NUR ---
PT IS LAYING IN BED WITH EYES CLOSED AT THIS TIME. NO NEEDS VOICED. NO SIGNS OF ACUTE DISTRESS. WILL CONTINUE TO MONITOR.
--- NOTE | 2018-10-28 03:00 | NUR ---
REASSESSMENT COMPLETED, SEE FLOWSHEET FOR DETAILS. PT IS LAYING IN BED WITH EYES CLOSED AT THIS TIME. NO SIGNS OF ACUTE DISTRESS. WILL CONTINUE TO MONITOR.
[2018-10-28 03:57] LABS: BASOPHILS 0.2 % (0-2); EOSINOPHILS 1.5 % (0-7); HEMATOCRIT 32.6 % (42.0-54.0); IMMATURE GRANULOCYTES 0.4 % (0-5); LYMPHOCYTES 28.3 % (15-50); MCH 28.9 pg (26.0-34.0); MCHC 33.7 g/dL (31.0-37.0); MCV 85.6 fL (80.0-100.0); MEAN PLATELET VOLUME 9.3 fL (7.4-10.4); MONOCYTES 9.7 % (2-11); NEUTROPHILS 59.9 % (40-80); PLATELET COUNT 227 10x3/uL (130-400); RBC 3.81 10x6/uL (4.20-6.10); RDW 16.1 % (11.5-14.5); WBC 10.9 10x3/uL (4.8-10.8)
[2018-10-28 04:08] LABS: CALC OSMOLALITY 281 mosm/kg (275-300); CALCIUM 8.2 mg/dL (8.5-10.1); CARBON DIOXIDE 25.3 mmol/L (21.0-32.0); CHLORIDE - SERUM 107 mmol/L (98-107); CREATININE - SERUM 0.9 mg/dL (0.6-1.3); GLUCOSE 96 mg/dL (74-106); SODIUM 141 mmol/L (136-145); UREA NITROGEN 14 mg/dL (7-18); eGFR NON AFRICAN AMERICAN > 90 mL/min (90-120)
[2018-10-28 04:13] LABS: POTASSIUM - SERUM 3.4 mmol/L (3.5-5.1)
--- NOTE | 2018-10-28 05:00 | NUR ---
PT IS RESTING IN BED WITH EYES CLOSED AT THIS TIME. NO NEEDS VOICED AT THIS TIME. NO SIGNS OF ACUTE DISTRESS. WILL CONTINUE TO MONITOR.
--- NOTE | 2018-10-28 07:00 | NUR ---
REPORT RECIEVED, SHIFT ASSESSMENT COMPLETE, PT IS ALERT AND ORIENTED, ON RA WITH 97% O2 SAT. MIDLINE ABDOMINAL DRSG IS CDI, ALL PPP, VSS, CALL LIGHT IN REACH,
[2018-10-28 08:21] LABS: POTASSIUM - SERUM 3.7 mmol/L (3.5-5.1); VANCOMYCIN - TROUGH 20.4 ug/mL (10.0-20.0)
--- NOTE | 2018-10-28 09:00 | NUR ---
COMPLETE BATH AND LINEN CHANGE, PT UP IN CHAIR, TOLERATED WELL
--- NOTE | 2018-10-28 09:19 | NUR ---
NUTRITION F/U CLEAR LIQUID DIET STARTED. S/P SURGERY. WILL MONITOR DIET ADVANCEMENT, PT PROGRESS. RD FOLLOWING
--- NOTE | 2018-10-28 10:00 | NUR ---
DR. ONEAL AT BEDSIDE, UPDATE GIVEN, NEW ORDERS RECIEVED,
--- NOTE | 2018-10-28 11:14 | NUR ---
PT SITTING UP IN CHAIR, DENIES ANY NEEDS AT THIS TIME, VSS, CALL LIGHT IN REACH
--- NOTE | 2018-10-28 13:00 | NUR ---
NO NEEDS NOTED AT THIS TIME, WILL CON'T TO MONITOR
--- NOTE | 2018-10-28 15:25 | NUR ---
REASSESSMENT COMPLETE, PT IS AWAKE AT THIS TIME, DENIES ANY WANTS OR NEEDS, VSS, CALL LIGHT IN REACH
--- NOTE | 2018-10-28 16:41 | NUR ---
PT STILL ADMITS TO SI. BUT NO FURTHER PLAN. 1:[address] WILL REPORT ASSESSMENT TO DR. EVERETT.
--- NOTE | 2018-10-28 16:41 | NUR ---
PT ADMITS TO SI. BUT DENIES DENIES AT THIS TIME. PT CONTINUES TO BE ON LINE OF SIGHT OBSERVATION. SITTER PRESENT. WILL REPORT ASSESSMENT FINDING TO DR. EVERETT.
--- NOTE | 2018-10-28 17:15 | NUR ---
PT UP IN CHAIR, WATCHING TV, NO NEEDS NOTED,
[2018-10-29] VITALS (9 sets, daily range): BP systolic 96–134; BP diastolic 60–85
--- NOTE | 2018-10-29 07:22 | NUR ---
REPORT RECIEVED, SHIFT ASSESSMENT COMPLETE, PT IS ALERT AND ORIENTED, ON RA WITH 975 O2 SAT. SITTER AT BEDSIDE, ALL PPP, VSS, CALL LIGHT IN REACH
--- NOTE | 2018-10-29 08:00 | NUR ---
DR. ONEAL AT BEDSIDE, NEW ORDERS RECIEVED
[2018-10-29 08:37] LABS: BASOPHILS 0.3 % (0-2); EOSINOPHILS 4.2 % (0-7); HEMATOCRIT 34.5 % (42.0-54.0); HEMOGLOBIN 11.9 g/dL (13.5-17.5); IMMATURE GRANULOCYTES 0.2 % (0-5); LYMPHOCYTES 25.5 % (15-50); MCHC 34.5 g/dL (31.0-37.0); MCV 84.1 fL (80.0-100.0); MEAN PLATELET VOLUME 9.2 fL (7.4-10.4); MONOCYTES 7.7 % (2-11); NEUTROPHILS 62.1 % (40-80); PLATELET COUNT 248 10x3/uL (130-400); RDW 15.8 % (11.5-14.5)
[2018-10-29 08:43] LABS: CALC OSMOLALITY 276 mosm/kg (275-300); CALCIUM 8.3 mg/dL (8.5-10.1); CARBON DIOXIDE 23.7 mmol/L (21.0-32.0); CHLORIDE - SERUM 105 mmol/L (98-107); CREATININE - SERUM 0.9 mg/dL (0.6-1.3); GLUCOSE 97 mg/dL (74-106); POTASSIUM - SERUM 3.6 mmol/L (3.5-5.1); SODIUM 139 mmol/L (136-145); UREA NITROGEN 10 mg/dL (7-18); eGFR NON AFRICAN AMERICAN > 90 mL/min (90-120)
--- NOTE | 2018-10-29 09:00 | NUR ---
DR. JAMES AT BEDSIDE, UPDATE GIVEN,
--- NOTE | 2018-10-29 09:08 | NUR ---
NUTRITION F//U DIET ADVANCED TO REG TOLERATED. WILL HONOR FOOD PREFERENCES, MONITOR PO INTAKE. RD FOLLOWING
--- NOTE | 2018-10-29 09:40 | MORECARE ---
CASE MANAGEMENT DISCHARGE SUMMARY PATIENT: VISHAL NICOLE UNIT: [id number] ADM DATE: 10/20/18 AGE: 32 : 89 SEX: M ROOM/BED: D.2307 AUTHOR: JOSE LUIS SANTANA PHYSICIAN: REFERRING PHYSICIAN: SALO JAMES MD DATE OF SERVICE: 10/29/18 Discharge Plan Patient Name: [facility]ISHAL [facility]ICOLE [facility] [facility] 1985 Planned Disposition: Anticipated Discharge Date: Discharge Date: Expected LOS: Initial Reviewer: [email or web address] Initial Review Date: 10/20/2018 Generated: 10/29/18 10:39 am DCP- Discharge Planning Updated by [email or web address]: Gaby Calixto on 10/25/18 11:[address] CM received notice that patient will need placement for inpatient psychiatric treatment once medically stable. Patient is having surgery today to remove foreign body. CM will continue to follow and assist as needed with discharge planning/ needs. External Providers External Provider: [facility] Next Contact Date: Service Request Date: Service Type: Resolution: Reviewer: Comments: Last DP export: 10/25/18 11:53 a Patient Name: VISHAL NICOLE Page [phone] at 0940 All edits/amendments must be made on the electronic document DICTATION DATE: 10/29/18938 PELT GRADER: YORDAN 10/29/18938 RPT#: [id number] DC DATE: STATUS: ADM IN [facility] [address] [place] [address] END OF REPORT
--- NOTE | 2018-10-29 11:24 | NUR ---
PT RESTING AT THIS TIME, NO NEEDS NOTED, WILL CON'T TO MONITOR
--- NOTE | 2018-10-29 13:51 | NUR ---
REPORT CALLED TO REN[facility]E BUNN [facility]
--- NOTE | 2018-10-29 14:40 | NUR ---
AMBULANCE AT BEDSIDE, PT DC'D AT THIS TIME,
--- NOTE | 2018-10-29 20:06 | MORECARE ---
CASE MANAGEMENT DISCHARGE SUMMARY PATIENT: VISHAL NICOLE UNIT: [id number] ADM DATE: 10/20/18 AGE: 32 : 89 SEX: M ROOM/BED: D.2307 AUTHOR: JOSE LUIS SANTANA PHYSICIAN: REFERRING PHYSICIAN: SALO JAMES MD DATE OF SERVICE: 10/29/18 Discharge Plan Patient Name: VISHAL NICOLE [facility] [facility] 1985 Planned Disposition: Anticipated Discharge Date: Discharge Date: 10/29/2018 Expected LOS: Initial Reviewer: [email or web address] Initial Review Date: 10/20/2018 Generated: 10/29/18 9:06 pm DCP- Discharge Planning Updated by [email or web address]: Gaby Calixto on 10/25/18 11:[address] CM received notice that patient will need placement for inpatient psychiatric treatment once medically stable. Patient is having surgery today to remove foreign body. CM will continue to follow and assist as needed with discharge planning/ needs. Last DP export: 10/29/18 8:39 am Patient Name: VISHAL NICOLE Page [phone] at 2005 All edits/amendments must be made on the electronic document DICTATION DATE: 10/29/182005 SHIP MATE: YORDAN 10/29/182005 RPT#: [id number] DC DATE:10/29/18 STATUS: DIS IN [place] [id number] [place] [address] END OF REPORT
== END 2018-10-29 14:49 | DRG 330 ==
LOC: D.ER 16:08 → D.ICU 17:57
PROVIDERS: Family Medicine; Internal Medicine Gastroenterology; Surgery; ADMIT Internal Medicine Nephrology; ATTEND Internal Medicine Nephrology
PROC: 0DJD8ZZ Inspection of Lower Intestinal Tract, Via Natural or Artificial Opening Endoscopic (ICD-10-PCS; 2018-10-23)
PROC: 05HY33Z Insertion of Infusion Device into Upper Vein, Percutaneous Approach (ICD-10-PCS; 2018-10-25)
PROC: 0DB80ZZ Excision of Small Intestine, Open Approach (ICD-10-PCS; principal; 2018-10-25 10:00)
PROC: 0DC80ZZ Extirpation of Matter from Small Intestine, Open Approach (ICD-10-PCS; 2018-10-25 10:00)
DX: T18.2XXA Foreign body in stomach, initial encounter (principal); F34.81 Disruptive mood dysregulation disorder; F15.10 Other stimulant abuse, uncomplicated; F20.9 Schizophrenia, unspecified; F31.9 Bipolar disorder, unspecified; B19.20 Unspecified viral hepatitis C without hepatic coma; D64.9 Anemia, unspecified; T14.91XA Suicide attempt, initial encounter; F17.200 Nicotine dependence, unspecified, uncomplicated; X83.8XXA Intentional self-harm by other specified means, initial encounter